=== PATIENT | male | born 1955 | race Caucasian/White ===

== ENCOUNTER 2021-10-14 14:18 | Oncology outpatient (recurring) (ONCR) | payer MEDICAID, SELFPAY ==
--- NOTE | 2021-10-07 13:49 | N.ONRAD NP_ITS ---
Radiation Oncology Consultation Patient Name: Ervin Vásquez Date of : 1955 Date of Service: 10/07/2021 Attending Physician: Yury Rea M.D. Ervin Vásquez was seen in consultation this afternoon at the request of Zaki Chaparro M.D. for evaluation regarding post-operative radiotherapy for the management of a recently diagnosed tonsillar cancer. The patient was evaluated by Bandar Jordan M.D. at [facility] ENT dysphagia and right otalgia in July. An examination described an ulcerated mass of the right tonsil. A fiberoptic laryngoscopy did not identify any abnormalities within base of tongue or larynx. 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 A CT scan of the neck (independently visualized in [facility]) ordered on July 25, 2021 demonstrated fullness of the right tonsillar pillar and bilateral, cervical lymphadenopathy. The largest lymph node measured 1.4 cm. PET scan on August 12, 2021 reported a large mass involving the right iram-tonsillar region with a maximum SUV of 17.4 and a 2 cm right cervical lymph node located posteriorly to the sternocleidomastoid muscle (SUV 19.9). He was referred to the [facility] Department of otolaryngology for surgical evaluation. An oral examination identified firmness of the right lateral oral tongue. Trismus was also present. A right partial glossectomy, right neck dissection, mandibulotomy with plate placement, a right anterior lateral thigh free flap pharyngoplasty, PEG placement, and tracheostomy was performed by Zaki Chaparro M.D. on September 03, 2021. The pathology report (requested from the outside hospital and personally reviewed in [facility]) diagnosed a 6 cm, moderately-differentiated, squamous cell carcinoma of the right tonsil, oral tongue, retromolar trigone, and floor of mouth. The depth of invasion measured 4.8 cm with focal iram--neural invasion present. Invasive tumor was present at the posterior surgical margin. A total of 44 lymph nodes were harvested with 1 lymph node harboring metastatic disease. The lymph node measured 4 cm and extranodal extension was present (level IIA). He was evaluated for post-operative radiotherapy. I discussed with Mr. Vásquez the AJCC staging for head and neck cancer and the patient's for pathological stage IVB (T4aN3b) specific to his diagnosis. I reviewed The National Comprehensive Cancer Network Guidelines for adjuvant chemoradiotherapy in patients with newly resected tumors and adverse features (i.e. positive margins, extranodal extension). I also summarized the classic studies - the EORTC 39095 and RTOG 9501 trials - that established this recommendation. The EORTC investigation demonstrated an overall survival advantage and improved locoregional control in the combined modality arm, while the RTOG study documented improved disease-free survival and locoregional control in a subgroup of patients with positive margins and extranodal extension. I would endorse a 6 1/2-week course of radiation therapy. Prior to beginning treatment, a radiotherapy planning CT scan with contrast will be acquired to delineate the clinical target volumes. I will also refer the patient to medical oncology consultation. I reviewed the potential toxicities of head and neck radiotherapy. The patient has verbalized understanding and would like to proceed as advocated. Patient's medical case was discussed with Zaki Chaparro M.D. Signed by: Dr. Yury Rea 12/04/2021 3:12:10 PM
[2021-10-07 14:25] LABS: Basophils % 0.3 %; Eosinophils # 0.4 10^3/uL (0.0-0.8); Eosinophils % 4.6 %; Hematocrit 35.2 % (42.0-52.0); Hemoglobin 11.3 g/dL (11.7-16.6); Lymphocytes # 2.7 10^3/uL (0.8-4.8); Lymphocytes % 30.7 %; Mean Corpuscular HGB Conc 32.1 g/dL (30.0-36.0); Mean Corpuscular Hemoglobin 31.3 pg (28.0-34.0); Mean Corpuscular Volume 97.5 fl (80-94); Monocytes # 0.9 10^3/uL (0.2-0.9); Monocytes % 10.1 %; Neutrophils # 4.76 10^3/uL (1.8-7.7); Neutrophils % 53.8 %; Nucleated Red Blood Cells % 0 %; Platelet Count 263 10^3/cmm (130-400); Red Blood Count 3.61 10^6/uL (4.1-5.3); Red Cell Distribution Width 12.8 % (12.1-15.1); White Blood Count 8.8 10^3/uL (4.0-10.0)
[2021-10-07 14:27] LABS: Alanine Aminotransferase 17 U/L (0-41); Albumin Level 4.1 g/dL (3.5-5.2); Alkaline Phosphatase 73 IU/L (40-130); Anion Gap 13.2 (5-19); Aspartate Amino Transferase 24 U/L (0-40); Blood Urea Nitrogen 22 mg/dL (8-23); Calcium 9.4 mg/dL (8.5-10.5); Carbon Dioxide 28 mmol/L (22-29); Chloride 100 mmol/L (98-107); Globulin 3.2 g/dL (1.3-4.6); Glomerular Filtration Rate 113.9 mL/min (90-130); Glucose 110 mg/dL (65-115); Osmolality Calculated 286 mOsm/kg (285-295); Potassium 5.2 mmol/L (3.5-5.1); Sodium 136 mmol/L (136-145); Total Bilirubin 0.3 mg/dL (0.15-1.2); Total Protein 7.3 g/dL (6.6-8.7)
== END 2021-10-17 23:59 | disposition home or self-care (01) ==
PROVIDERS: Radiology Radiation Oncology; Visit Provider Internal Medicine Hematology & Oncology
DX: Z53.9 Procedure and treatment not carried out, unspecified reason (principal)
CPT/HCPCS: 36415; 80053; 85025

== ENCOUNTER 2021-11-07 07:10 | Day surgery (SDC) | payer MEDICAID, SELFPAY ==
[2021-11-06 14:15] VITALS: BMI 20.9
[2021-11-07] VITALS (8 sets, daily range): BP systolic 125–152; BP diastolic 67–91; PULSE 57–68; RESP 14–18; TEMP 36.3–36.7; O2SAT 96–100
--- NOTE | 2021-11-07 | SCC_ITS ---
Procedure done: Placement of PowerPort in the left subclavian vein Fluoroscopic guidance and interpretation for placement of catheter 17.5 seconds of fluoroscopic guidance, for a cumulative dose of 2.19 mGy, was provided to Dr. Lala by the radiology department. C-arm images of the chest were saved for the patient's permanent record. [facility]
--- NOTE | 2021-11-07 06:59 | SC_ITS ---
WS: [id number] INTRAOPERATIVE TECHNIQUE: 2 Spot fluoroscopic images for intraoperative purposes. FLUOROSCOPY TIME: 15.2 seconds CLINICAL INFORMATION: intra-op COMPARISON: None. FINDINGS: LEFT Port-A-Cath with tip in the distal SVC. No visualized pneumothorax. SC/C-arm FL for CVA [id number] IMPRESSION: Images obtained for intraoperative purposes.
--- NOTE | 2021-11-07 08:03 | P.HP_ITS ---
Same Day Surgery H&P Indication for Procedure/HPI DATE OF PROCEDURE: November 07, 2021 CHIEF COMPLAINT/INDICATIONFOR SURGICAL PROCEDURE: Port placement PREOP DIAGNOSIS: tonsillar ca PLANNED PROCEDURE: Operation Date: 11/07/21 08:45 Proposed Procedures p Portacath Placement [id number],Z95.828,C09.9(Not Applicable) - Jose Angel Lala MD Medications/Allergies* Home Medications Medication Instructions Recorded Confirmed Type glycopyrrolate 1 mg tablet 1 mg PO BID tab 10/14/21 11/07/21 History ibuprofen 800 mg tablet 800 mg PO BID PRN tab 10/14/21 11/07/21 History lorazepam 0.5 mg tablet 0.5 mg PO .hs PRN tab 10/14/21 11/07/21 History omeprazole magnesium 20 mg 20 mg PO DAILY 10/14/21 11/07/21 History tablet,delayed release (Prilosec OTC) Allergies/Adverse Reactions Allergy/AdvReac Type Severity Reaction Status Date / Time No Known Allergies Allergy Verified 11/06/21 14:14 Pertinent History/Comorbid Conditions* Medical History (Updated 11/05/21 @ 10:59 by Jose Angel Lala MD) Cataract Tonsillar cancer Surgical History (Updated 11/05/21 @ 10:59 by Jose Angel Lala MD) History of coronary artery stent placement History of radical neck surgery History of umbilical hernia repair S/P percutaneous endoscopic gastrostomy (PEG) tube placement Family History (Updated 10/14/21 @ 15:47 by Cleopatra Montana LPN) Family history unknown Social History Smoking and tobacco status: former smoker Alcohol intake: current Alcohol intake frequency: 0-2 Drinks per Day Pertinent Exam Findings alert, oriented x 3 and regular rate & rhythm Recommendations Surgery/Procedure today Coding Level of Care Code 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
[2021-11-07] MEDS: sodium chloride 0.9% 1,000 ML 30 ML IV (08:05)
--- NOTE | 2021-11-07 08:15 | ANES.PREANE2 ---
Pre-Anesthetic Assessment Height/Weight: Height 1.83 m Weight 69.853 kg Temp Pulse Resp BP Pulse Ox 97.3 F L 57 L 18 148/73 100 11/07/21 07:46 11/07/21 07:46 11/07/21 07:46 11/07/21 07:46 11/07/21 07:46 Preop Diagnosis: tonsillar ca Operation Date: 11/07/21 08:45 Proposed Procedures p Portacath Placement 48567,Z95.828,C09.9(Not Applicable) - Jose Angel Lala MD Familial anesthetic complications: none Was Beta Tequila taken within 24 hours: N/A Was Clonidine taken within 24 hours: N/A Last intake: Intake Last Liquid Date 11/06/21 Last Liquid Time 05:00 Last Solid Date 11/06/21 Last Solid Time 18:00 Social Alcohol and Tobacco Exam alert, oriented x 3 and regular rate & rhythm rhonchi Airway Submandibular: within normal limits Cervical ROM: within normal limits Mallampati: Class II Dentition: false Pulmonary Chronic Obstructive Pulmonary Disease CV/HEM Coronary Artery Disease (stent) GI Gastroesophageal Reflux Disease Neuropsych Anxiety Anesthetic Plan ASA status: 3 Anesthesia: MAC Medications/Allergies Home Medications Medication Instructions Recorded Confirmed Last Taken Type glycopyrrolate 1 mg tablet 1 mg PO BID tab 10/14/21 11/07/21 11/06/21 History ibuprofen 800 mg tablet 800 mg PO BID PRN tab 10/14/21 11/07/21 10/24/21 History lorazepam 0.5 mg tablet 0.5 mg PO .hs PRN tab 10/14/21 11/07/21 11/06/21 20:00 History omeprazole magnesium 20 mg 20 mg PO DAILY 10/14/21 11/07/21 11/06/21 20:00 History tablet,delayed release (Prilosec OTC) hydrocodone 5 mg-acetaminophen 325 1 tab PO Q6H PRN #20 tab 11/07/21 Unknown Rx mg tablet Allergies Allergy/AdvReac Type Severity Reaction Status Date / Time No Known Allergies Allergy Verified 11/06/21 14:14 Current Medications Generic Name Dose Route Start Last Admin Trade Name Freq PRN Reason Stop Dose Admin Sodium Chloride 1,000 mls @ 30 mls/hr 11/07/21 07:45 11/07/21 08:05 Sodium Chloride 0.9% IV 11/08/21 07:44 30 mls/hr .Q24H ELIZABETH Administration PFSH Anesthesia Medical History (Updated 11/07/21 @ 08:05 by Jose Angel Lala MD) Cataract Tonsillar cancer Surgical History (Updated 11/07/21 @ 08:05 by Jose Angel Lala MD) History of coronary artery stent placement History of radical neck surgery History of umbilical hernia repair Port-A-Cath in place (11/07/21) S/P percutaneous endoscopic gastrostomy (PEG) tube placement Family History Other Family history unknown Social History Smoking and tobacco status: former smoker Alcohol intake: current Alcohol intake frequency: 0-2 Drinks per Day Data Anesthesia Cardiac Studies: No Data to Display
[2021-11-07] MEDS: ceFAZolin 2,000 MG in sodium chloride 0.9% (plus) 50 ML 100 MG IV (08:51)
[2021-11-07] MEDS: lidocaine 2% INJ 20 mL INJECTION (09:17)
[2021-11-07] MEDS: heparin, porcine 1,000 unit/mL INJ 10 mL 10000 UNIT IRRIGATION (09:18)
--- NOTE | 2021-11-07 09:32 | PM.OP ---
Operative Report Date of procedure: November 07, 2021 Pre-op diagnosis: Tonsillar cancer requiring central venous access for chemotherapy Post-op diagnosis: same Procedure done: Placement of PowerPort in the left subclavian vein Fluoroscopic guidance and interpretation for placement of catheter Pathology: none sent Surgeon: Jose Angel Lala Anesthesia: General Condition: stable Disposition: PACU Procedure: The patient was taken to the Operating Room and the chest and neck bilaterally were prepped and draped in a sterile manner after the antibiotic had been administered and shoulder rolls had been placed. A total of 10 mL of 1% lidocaine with 0.5% Marcaine was infiltrated under the clavicle on the left side at the site of the planned entry into the subclavian vein. An introducer needle was then used to access the subclavian vein under the clavicle and after withdrawing blood syringe was removed and a guidewire passed under fluoroscopy into the superior vena cava. The site of the planned port was then marked on the chest and a 15 blade was used to make a 3 cm skin incision this was extended into the subcutaneous tissue using electrocautery and a subcutaneous pocket over the pectoralis fascia was created 2-0 Vicryl suture was used to suture the port to the pectoral fascia in the pocket on 3 sides. The catheter, after having been flushed with hep saline, was attached to the tunneler and a tunnel created between the port site and the subclavian vein entry site. Under fluoroscopy the dilator sheath was passed over the guidewire into the proximal superior vena cava. The inner dilator was removed and the sheath left behind and~ the catheter was introduced through the peel-away sheath with the tip in the superior vena cava. The peel-away sheath was removed. The proximal end of the catheter was cut to the right size and was attached to the port. Using a Pollack needle the port was accessed, it withdrew blood easily and flushed easily. A final 5cc of heparin was used to flush the PowerPort. The subcutaneous tissue was approximated using interrupted 3-0 Vicryl sutures and the skin at the introducer site and the port site was closed using subcuticular running 4-0 Monocryl sutures. Surgical glue was applied and the patient was stable throughout the procedure. Fluoroscopic guidance and interpretation was performed for introduction of the guidewire in the left subclavian vein, passage of dilator and placement of catheter tip in the distal superior vena cava.
--- NOTE | 2021-11-07 16:20 | ANE.PACU2 ---
Inpatient post-anesthesia follow up: Airway intact: Yes Vital signs: Temperature 97.8 F Pulse Rate 59 Respiratory Rate 16 Blood Pressure 130/91 Pulse Oximetry 98 Oxygen Delivery Me thod Room Air Oxygen Flow Rate Fraction of Inspir ed Oxygen Hydration adequate: Yes Nausea and vomiting: No Pain level: 3 Mental status: Baseline
== END 2021-11-07 10:35 | disposition home or self-care (01) ==
PROVIDERS: Visit Provider Surgery
PROC: (CPT 36561; principal; 2021-11-07 08:45)
DX: C09.9 Malignant neoplasm of tonsil, unspecified (principal); J44.9 Chronic obstructive pulmonary disease, unspecified; I25.10 Atherosclerotic heart disease of native coronary artery without angina pectoris; Z95.5 Presence of coronary angioplasty implant and graft; K21.9 Gastro-esophageal reflux disease without esophagitis; F41.9 Anxiety disorder, unspecified; Z87.891 Personal history of nicotine dependence
CPT/HCPCS: 36561; 77001; C1788; J1644; J2250; J3010; J3490; J7030

== ENCOUNTER 2021-11-11 13:02 | Oncology outpatient (recurring) (ONCR) | payer MEDICAID, SELFPAY ==
--- NOTE | 2021-11-11 | CT_ITS ---
Radiation Therapy Planning CT images; total exam DLP: 576.59 mGy-cm MTDD
--- NOTE | 2021-11-11 14:04 | ONCRAD EPV_ITS ---
Radiation Oncology Established Patient Visit Patient: Thalia Mueller [id number] : 1955> Age: 66> Sex: Male> Dictated by: Dr. Chaz Andersen Date of Service: 11/11/2021 Referring Physician(s) : Dr. Bandar Jordan Diagnosis: C09.9 - Malignant neoplasm of tonsil, unspecified, Diagnosed 07/26/2021 (Active) Stage IVB, T4a, pN3b, M0, p16- Radiotherapy to Date: None Current History: Current Medications: Glycopyrrolate, lORazepam, priLOSEC OTC. Allergies: No Known Allergies Current Complaints / Review of Systems: . Mr. Vásquez was seen prior to simulation. He is continuing to have some right ear pain which is thought to be referred from his surgical bed area. No other areas of pain. He says he has mild difficulty opening his mouth. He is eating a semisolid diet. He is also using his PEG tube. He has had no trouble with the tube feedings. His incisions of the neck and of the oral cavity have healed well. His performance status is stable. He is ready to proceed with treatment. He states he has a small amount of taste along the left side of his tongue. He has moderate dryness of his mouth, particularly at night. Vital Signs: Physical Exam: General: Alert and oriented x 3. No acute distress. HEENT: Normocephalic, atraumatic. The right tympanic membrane is intact and completely clear. Mild trismus. Most of the tongue is replaced by surgical graft. There is a small amount of lateral tongue remaining on the left. Palpation of both the graft and the remaining normal tongue reveals no masses. No masses in the floor of mouth area. The graft covers the right lower gingiva. The remainder of the gingiva was palpated and no abnormality detected. The patient is edentulous. There is graft covering the area of the right soft palate. This area extends to just short of the uvula. No gross tumor seen in any of this area. No abnormal induration palpated. The soft palate graft extends from near the uvula laterally to the anterior tonsillar pillar. NECK: Supple without supraclavicular or jugular lymphadenopathy. Stable postoperative changes. The surgical scar is intact without any evidence of inflammation or infection. There is submental and submandibular edema on the right. No masses palpated in this area. LUNGS: Clear to auscultation bilaterally without rales, rhonchi or wheeze. HEART: Regular rate and rhythm, normal S1 and S2 without murmur, gallop or rub. MUSCULOSKELETAL: No tenderness or percussion pain over the axial skeleton, scapulae or pelvis. ABDOMEN: Soft, nontender, nondistended without masses or organomegaly. Bowell sounds are present. PEG tube is well-positioned and there is no inflammation of the puncture site. NEUROLOGIC: Cranial nerves II ???XII are grossly intact. Normal sensation, strength 5/5 in all extremities, normal gait, no ataxia. Performance Status: ECOG 1 Lab: None pending. Pathology: Primary, c09.9 - malignant neoplasm of tonsil, unspecified, Diagnosed 07/26/2021 (active) stage ivb, t4a, pn3b, m0, p16-. Imaging: See HPI Impression: Ready for simulation. I discussed the potential side effects and complications of treatment. Mr. Vásquez wishes to proceed. Simulation performed. Signed by: 11/11/2021 2:02:27 PM <<Signature on File>> Time spent with patient: CPT Code: CPT Code:
== END 2021-11-17 23:59 | disposition home or self-care (01) ==
PROVIDERS: Absent Provider Internal Medicine Hematology & Oncology; Visit Provider Specialist
DX: Z51.0 Encounter for antineoplastic radiation therapy (principal); C09.9 Malignant neoplasm of tonsil, unspecified
CPT/HCPCS: 77334; 77470

== ENCOUNTER 2021-12-16 08:00 | Oncology outpatient (recurring) (ONCR) | payer MEDICAID, SELFPAY ==
[2021-11-18 08:38] LABS: Basophils % 0.5 %; Eosinophils # 0.3 10^3/uL (0.0-0.8); Eosinophils % 3.4 %; Hematocrit 37.6 % (42.0-52.0); Hemoglobin 12.1 g/dL (11.7-16.6); Lymphocytes # 2.6 10^3/uL (0.8-4.8); Lymphocytes % 35.3 %; Mean Corpuscular HGB Conc 32.2 g/dL (30.0-36.0); Mean Corpuscular Hemoglobin 30.6 pg (28.0-34.0); Mean Corpuscular Volume 95.2 fl (80-94); Mean Platelet Volume 11.8 fL (7.4-10.4); Monocytes % 13.1 %; Neutrophils % 47.3 %; Nucleated Red Blood Cells % 0 %; Platelet Count 290 10^3/cmm (130-400); Red Blood Count 3.95 10^6/uL (4.1-5.3); Red Cell Distribution Width 13.3 % (12.1-15.1); White Blood Count 7.4 10^3/uL (4.0-10.0)
[2021-11-18] MEDS: sodium chloride 0.9% 250 ML 75 ML IV ×2 (08:46→10:43)
[2021-11-18 09:04] LABS: Alanine Aminotransferase 14 U/L (0-41); Albumin Level 4.2 g/dL (3.5-5.2); Alkaline Phosphatase 77 IU/L (40-130); Anion Gap 11.7 (5-19); Aspartate Amino Transferase 21 U/L (0-40); Blood Urea Nitrogen 13 mg/dL (8-23); Calcium 9.6 mg/dL (8.5-10.5); Carbon Dioxide 30 mmol/L (22-29); Chloride 99 mmol/L (98-107); Glomerular Filtration Rate 216.6 mL/min (90-130); Glucose 120 mg/dL (65-115); Osmolality Calculated 283 mOsm/kg (285-295); Potassium 4.7 mmol/L (3.5-5.1); Sodium 136 mmol/L (136-145); Total Bilirubin 0.4 mg/dL (0.15-1.2); Total Protein 7.2 g/dL (6.6-8.7)
[2021-11-18] MEDS: acetaminophen 650 mg/20.3 mL UDC PEG-TUBE (10:00)
[2021-11-18] MEDS: OLANZapine 5 mg ODT PO (10:02)
[2021-11-18] MEDS: palonosetron 0.25 mg/5 mL SDV IVP (10:12)
[2021-11-18] MEDS: famotidine 20 mg/2 mL INJ IVP (10:13)
[2021-11-18] MEDS: diphenhydrAMINE 50 mg/mL SDV 1mL 25 MG IVP (10:14)
[2021-11-18] MEDS: fosaprepitant 150 MG in sodium chloride 0.9% 150 ML 300 MG IV (10:17)
[2021-11-18] MEDS: FUROsemide 10 mg/mL SDV 2mL 20 MG IVP (13:00)
[2021-11-18] MEDS: potassium chloride 20 MEQ in sodium chloride 0.9% 500 ML 500 MEQ IV (13:00)
[2021-11-18 14:07] VITALS: BP 123/77; PULSE 61; RESP 16; TEMP 36.4; O2SAT 99
--- NOTE | 2021-11-19 15:16 | ONCRAD TMN_ITS ---
Radiation Oncology Treatment Management Note Patient Name: Ervin Vásquez Date of : 1955 Date of Service: 11/19/2021 Attending Physician: Yury Rea M.D. Ervin Vásquez is a 76 year old white male diagnosed with a recently diagnosed pathological stage IVB (T4aN3b) tongue cancer. The patient was evaluated by Bandar Jordan M.D. at [facility] ENT dysphagia and right otalgia in July. An examination described an ulcerated mass of the right tonsil. A fiberoptic laryngoscopy did not identify any abnormalities within base of tongue or larynx. 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 A CT scan of the neck ordered on July 25, 2021 demonstrated fullness of the right tonsillar pillar and bilateral, cervical lymphadenopathy. The largest lymph node measured 1.4 cm. PET scan on August 12, 2021 reported a large mass involving the right iram-tonsillar region with a maximum SUV of 17.4 and a 2 cm right cervical lymph node located posteriorly to the sternocleidomastoid muscle (SUV 19.9). He was referred to the [facility] Department of otolaryngology for surgical evaluation. An oral examination identified numbness of the right lateral oral tongue. Trismus was also present. A right partial glossectomy, right neck dissection, mandibulotomy with plate placement, a right anterior lateral thigh free flap pharyngoplasty, PEG placement, and tracheostomy was performed by Zaki Chaparro M.D. on September 03, 2021. The pathology report diagnosed a 6 cm, moderately-differentiated, squamous cell carcinoma of the right tonsil, oral tongue, retromolar trigone, and floor of mouth. The depth of invasion measured 4.8 cm with focal iram--neural invasion present. Invasive tumor was present at the posterior surgical margin. A total of 44 lymph nodes were harvested with 1 lymph node harboring metastatic disease. The lymph node measured 4 cm and extranodal extension was present (level IIA). The patient has received 4 Gy of a prescribed 66 Mcallister with an intensity modulated radiotherapy plan utilizing a step and shoot treatment technique. He has been prescribed Cisplatin (100 mg/m2) every three weeks during radiotherapy. Upon review of systems, he denied any complaints related to radiotherapy. On physical examination, the patient weighed 159 lbs. His temperature was 98.4 ???F and the blood pressure was 143/70 mmHg. His pulse was 69 bpm and the respiratory rate was 18. There was no erythema within the treatment joya. Continue post-operative head and neck radiotherapy as prescribed. Signed by: Dr. Yury Rea 11/19/2021 3:16:01 PM
[2021-11-25 08:40] LABS: Basophils % 0.5 %; Eosinophils # 0.2 10^3/uL (0.0-0.8); Eosinophils % 2.5 %; Hematocrit 40.3 % (42.0-52.0); Lymphocytes # 2.3 10^3/uL (0.8-4.8); Lymphocytes % 26.3 %; Mean Corpuscular HGB Conc 32.3 g/dL (30.0-36.0); Mean Corpuscular Hemoglobin 30.4 pg (28.0-34.0); Mean Corpuscular Volume 94.2 fl (80-94); Monocytes # 1.2 10^3/uL (0.2-0.9); Monocytes % 13.4 %; Neutrophils # 4.88 10^3/uL (1.8-7.7); Neutrophils % 56.9 %; Nucleated Red Blood Cells % 0 %; Platelet Count 257 10^3/cmm (130-400); Red Blood Count 4.28 10^6/uL (4.1-5.3); Red Cell Distribution Width 13.1 % (12.1-15.1); White Blood Count 8.6 10^3/uL (4.0-10.0)
[2021-11-25 09:03] LABS: Alanine Aminotransferase 34 U/L (0-41); Albumin Level 4.1 g/dL (3.5-5.2); Alkaline Phosphatase 88 IU/L (40-130); Anion Gap 16.4 (5-19); Aspartate Amino Transferase 27 U/L (0-40); Blood Urea Nitrogen 16 mg/dL (8-23); Calcium 9.7 mg/dL (8.5-10.5); Carbon Dioxide 28 mmol/L (22-29); Chloride 98 mmol/L (98-107); Globulin 3.6 g/dL (1.3-4.6); Glomerular Filtration Rate 167.4 mL/min (90-130); Glucose 97 mg/dL (65-115); Osmolality Calculated 287 mOsm/kg (285-295); Potassium 4.4 mmol/L (3.5-5.1); Sodium 138 mmol/L (136-145); Total Bilirubin 0.4 mg/dL (0.15-1.2); Total Protein 7.7 g/dL (6.6-8.7)
[2021-11-25] MEDS: sodium chloride 0.9% 500 ML 999 ML IV (10:21)
[2021-11-25] MEDS: dexamethasone 4 mg/mL INJ IV (10:22)
[2021-11-25] MEDS: ondansetron 2 mg/ML SDV 2 mL 8 MG IVP (10:23)
--- NOTE | 2021-11-26 15:20 | ONCRAD TMN_ITS ---
Radiation Oncology Treatment Management Note Patient Name: Ervin Vásquez Date of : 1955 Date of Service: 11/26/2021 Attending Physician: Yury Rea M.D. 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 The patient was evaluated by Bandar Jordan M.D. at [facility] ENT dysphagia and right otalgia in July. An examination described an ulcerated mass of the right tonsil. A fiberoptic laryngoscopy did not identify any abnormalities within base of tongue or larynx. 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 A CT scan of the neck ordered on July 25, 2021 demonstrated fullness of the right tonsillar pillar and bilateral, cervical lymphadenopathy. The largest lymph node measured 1.4 cm. PET scan on August 12, 2021 reported a large mass involving the right iram-tonsillar region with a maximum SUV of 17.4 and a 2 cm right cervical lymph node located posteriorly to the sternocleidomastoid muscle (SUV 19.9). He was referred to the [facility] Department of otolaryngology for surgical evaluation. An oral examination identified numbness of the right lateral oral tongue. Trismus was also present. A right partial glossectomy, right neck dissection, mandibulotomy with plate placement, a right anterior lateral thigh free flap pharyngoplasty, PEG placement, and tracheostomy was performed by Zaki Chaparro M.D. on September 03, 2021. The pathology report diagnosed a 6 cm, moderately-differentiated, squamous cell carcinoma of the right tonsil, oral tongue, retromolar trigone, and floor of mouth. The depth of invasion measured 4.8 cm with focal iram--neural invasion present. Invasive tumor was present at the posterior surgical margin. A total of 44 lymph nodes were harvested with 1 lymph node harboring metastatic disease. The lymph node measured 4 cm and extranodal extension was present (level IIA). The patient has received 12 Gy of a prescribed 66 Mcallister with an intensity modulated radiotherapy plan utilizing a step and shoot treatment technique. He has been prescribed Cisplatin (100 mg/m2) every three weeks during radiotherapy. Upon review of systems, he denied any complaints related to radiotherapy. On physical examination, the patient weighed 152 lbs. His temperature was 98 ???F and the blood pressure was 134/65 mmHg. His pulse was 71 bpm and the respiratory rate was 18. There was no erythema within the treatment joya. Continue post-operative head and neck radiotherapy as planned. Signed by: Dr. Yury Rea 11/26/2021 3:18:41 PM
[2021-12-02 08:19] LABS: Basophils % 0.7 %; Eosinophils # 0.2 10^3/uL (0.0-0.8); Eosinophils % 2.9 %; Hematocrit 37.1 % (42.0-52.0); Lymphocytes % 18.8 %; Mean Corpuscular HGB Conc 32.3 g/dL (30.0-36.0); Mean Corpuscular Hemoglobin 30.6 pg (28.0-34.0); Mean Corpuscular Volume 94.6 fl (80-94); Mean Platelet Volume 11.7 fL (7.4-10.4); Monocytes # 0.6 10^3/uL (0.2-0.9); Monocytes % 11.6 %; Neutrophils # 3.58 10^3/uL (1.8-7.7); Neutrophils % 65.8 %; Nucleated Red Blood Cells % 0 %; Platelet Count 218 10^3/cmm (130-400); Red Blood Count 3.92 10^6/uL (4.1-5.3); Red Cell Distribution Width 13.2 % (12.1-15.1); White Blood Count 5.4 10^3/uL (4.0-10.0)
[2021-12-02 08:40] LABS: Alanine Aminotransferase 12 U/L (0-41); Albumin Level 3.8 g/dL (3.5-5.2); Alkaline Phosphatase 76 IU/L (40-130); Anion Gap 13.6 (5-19); Aspartate Amino Transferase 20 U/L (0-40); Blood Urea Nitrogen 16 mg/dL (8-23); Calcium 8.9 mg/dL (8.5-10.5); Carbon Dioxide 28 mmol/L (22-29); Chloride 100 mmol/L (98-107); Globulin 3.4 g/dL (1.3-4.6); Glomerular Filtration Rate 167.4 mL/min (90-130); Glucose 107 mg/dL (65-115); Osmolality Calculated 286 mOsm/kg (285-295); Potassium 4.6 mmol/L (3.5-5.1); Sodium 137 mmol/L (136-145); Total Bilirubin 0.3 mg/dL (0.15-1.2); Total Protein 7.2 g/dL (6.6-8.7)
[2021-12-02] MEDS: sodium chloride 0.9% 1,000 ML 999 ML IV (09:22)
--- NOTE | 2021-12-03 15:37 | ONCRAD TMN_ITS ---
Radiation Oncology Treatment Management Note Patient Name: Ervin Vásquez Date of : 1955 Date of Service: 12/03/2021 Attending Physician: Yury Rea M.D. 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 The patient was evaluated by Bandar Jordan M.D. at [facility] ENT dysphagia and right otalgia in July. An examination described an ulcerated mass of the right tonsil. A fiberoptic laryngoscopy did not identify any abnormalities within base of tongue or larynx. 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 A CT scan of the neck ordered on July 25, 2021 demonstrated fullness of the right tonsillar pillar and bilateral, cervical lymphadenopathy. The largest lymph node measured 1.4 cm. PET scan on August 12, 2021 reported a large mass involving the right iram-tonsillar region with a maximum SUV of 17.4 and a 2 cm right cervical lymph node located posteriorly to the sternocleidomastoid muscle (SUV 19.9). [facility] Department of [facility]olaryngology for surgical evaluation. An oral examination identified firmness of the right lateral oral tongue. Trismus was also present. A right partial glossectomy, right neck dissection, mandibulotomy with plate placement, a right anterior lateral thigh free flap pharyngoplasty, PEG placement, and tracheostomy was performed by Zaki Chaparro M.D. on September 03, 2021. The pathology report diagnosed a 6 cm, moderately-differentiated, squamous cell carcinoma of the right tonsil, oral tongue, retromolar trigone, and floor of mouth. The depth of invasion measured 4.8 cm with focal iram-neural invasion present. Invasive tumor was present at the posterior surgical margin. A total of 44 lymph nodes were harvested with 1 lymph node harboring metastatic disease. The lymph node measured 4 cm and extranodal extension was present (level IIA). The patient has received 22 Gy of a prescribed 66 Mcallister with an intensity modulated radiotherapy plan utilizing a step and shoot treatment technique. He has been prescribed Cisplatin (100 mg/m2) every three weeks during radiotherapy. Upon review of systems, he denied any complaints related to radiotherapy. On physical examination, the patient weighed 156 lbs. His temperature was 97.5 ???F and the blood pressure was 120/64 mmHg. His pulse was 64 bpm and the respiratory rate was 18. There was no erythema within the treatment joya. Continue post-operative head and neck radiotherapy as prescribed. Signed by: Dr. Yury Rea 12/04/2021 3:12:32 PM
[2021-12-09 08:21] LABS: Basophils % 0.8 %; Eosinophils # 0.2 10^3/uL (0.0-0.8); Eosinophils % 6.3 %; Hematocrit 38.5 % (42.0-52.0); Hemoglobin 12.4 g/dL (11.7-16.6); Lymphocytes # 0.9 10^3/uL (0.8-4.8); Lymphocytes % 23.1 %; Mean Corpuscular HGB Conc 32.2 g/dL (30.0-36.0); Mean Corpuscular Volume 93.2 fl (80-94); Mean Platelet Volume 11.4 fL (7.4-10.4); Monocytes # 0.6 10^3/uL (0.2-0.9); Monocytes % 15.5 %; Neutrophils % 54.3 %; Nucleated Red Blood Cells % 0 %; Platelet Count 284 10^3/cmm (130-400); Red Blood Count 4.13 10^6/uL (4.1-5.3); Red Cell Distribution Width 13.1 % (12.1-15.1); White Blood Count 3.7 10^3/uL (4.0-10.0)
[2021-12-09 08:52] LABS: Alanine Aminotransferase 13 U/L (0-41); Albumin Level 3.9 g/dL (3.5-5.2); Alkaline Phosphatase 84 U/L (40-130); Anion Gap 13.8 (5-19); Aspartate Amino Transferase 19 U/L (0-40); Blood Urea Nitrogen 17 mg/dL (8-23); Calcium 9.2 mg/dL (8.5-10.5); Carbon Dioxide 29 mmol/L (22-29); Chloride 99 mmol/L (98-107); Globulin 3.7 g/dL (1.3-4.6); Glomerular Filtration Rate 167.4 mL/min (90-130); Glucose 115 mg/dL (65-115); Osmolality Calculated 286 mOsm/kg (285-295); Potassium 4.8 mmol/L (3.5-5.1); Sodium 137 mmol/L (136-145); Total Bilirubin 0.2 mg/dL (0.15-1.2); Total Protein 7.6 g/dL (6.6-8.7)
[2021-12-09] MEDS: famotidine 20 mg/2 mL INJ IVP (11:22)
[2021-12-09] MEDS: sodium chloride 0.9% 250 ML IV (11:22)
[2021-12-09] MEDS: diphenhydrAMINE 50 mg/mL SDV 1mL 25 MG IVP (11:22)
[2021-12-09] MEDS: OLANZapine 5 mg TABLET PO (11:23)
[2021-12-09] MEDS: fosaprepitant 150 MG in sodium chloride 0.9% 150 ML 300 MG IV (11:27)
[2021-12-09] MEDS: palonosetron 0.25 mg/5 mL SDV IVP (12:07)
[2021-12-09] MEDS: CISPLATIN IV (12:34)
[2021-12-09] MEDS: SODIUM CHLORIDE 0.9% IV (12:34)
[2021-12-09] MEDS: FUROsemide 10 mg/mL SDV 2mL 20 MG IVP (13:43)
[2021-12-09] MEDS: potassium chloride 20 MEQ in sodium chloride 0.9% 500 ML 500 MEQ IV (13:47)
[2021-12-09 15:07] VITALS: BP 121/65; PULSE 57; TEMP 37.2; O2SAT 97
--- NOTE | 2021-12-10 15:20 | ONCRAD TMN_ITS ---
Radiation Oncology Treatment Management Note Patient Name: Ervin Vásquez Date of : 1955 Date of Service: 12/10/2021 Attending Physician: Yury Rea M.D. 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 The patient was evaluated by Bandar Jordan M.D. at [facility] ENT dysphagia and right otalgia in July. An examination described an ulcerated mass of the right tonsil. A fiberoptic laryngoscopy did not identify any abnormalities within base of tongue or larynx. 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 A CT scan of the neck ordered on July 25, 2021 demonstrated fullness of the right tonsillar pillar and bilateral, cervical lymphadenopathy. The largest lymph node measured 1.4 cm. PET scan on August 12, 2021 reported a large mass involving the right iram-tonsillar region with a maximum SUV of 17.4 and a 2 cm right cervical lymph node located posteriorly to the sternocleidomastoid muscle (SUV 19.9). He was referred to the [facility]s Department of otolaryngology for surgical evaluation. An oral examination identified firmness of the right lateral oral tongue. Trismus was also present. A right partial glossectomy, right neck dissection, mandibulotomy with plate placement, a right anterior lateral thigh free flap pharyngoplasty, PEG placement, and tracheostomy was performed by Zaki Chaparro M.D. on September 03, 2021. The pathology report diagnosed a 6 cm, moderately-differentiated, squamous cell carcinoma of the right tonsil, oral tongue, retromolar trigone, and floor of mouth. The depth of invasion measured 4.8 cm with focal iram-neural invasion present. Invasive tumor was present at the posterior surgical margin. A total of 44 lymph nodes were harvested with 1 lymph node harboring metastatic disease. The lymph node measured 4 cm and extranodal extension was present (level IIA). The patient has received 32 Gy of a prescribed 66 Mcallister with an intensity modulated radiotherapy plan utilizing a step and shoot treatment technique. He has been prescribed cisplatin (100 mg/m2) every three weeks during radiotherapy. After the first cycle of chemotherapy, the schedule was changed to weekly cisplatin attributable to adverse effects. Upon review of systems, he described a lip sore. On physical examination, the patient weighed 158 lbs. His temperature was 99.1 ???F and the blood pressure was 146/80 mmHg. His pulse was 73 bpm and the respiratory rate was 18. There was no erythema within the treatment joya. A grade I mucositis was present. Continue post-operative head and neck radiotherapy as planned. Signed by: Dr. Yury Rea 12/10/2021 3:19:06 PM
[2021-12-16 08:30] LABS: Basophils # 0.1 10^3/uL (0.0-0.1); Basophils % 0.9 %; Eosinophils # 0.3 10^3/uL (0.0-0.8); Eosinophils % 5.1 %; Hematocrit 37.7 % (42.0-52.0); Hemoglobin 12.3 g/dL (11.7-16.6); Lymphocytes # 0.8 10^3/uL (0.8-4.8); Lymphocytes % 15.1 %; Mean Corpuscular HGB Conc 32.6 g/dL (30.0-36.0); Mean Corpuscular Hemoglobin 30.7 pg (28.0-34.0); Mean Platelet Volume 11.9 fL (7.4-10.4); Monocytes # 0.7 10^3/uL (0.2-0.9); Monocytes % 13.3 %; Neutrophils # 3.57 10^3/uL (1.8-7.7); Neutrophils % 65.1 %; Nucleated Red Blood Cells % 0 %; Platelet Count 199 10^3/cmm (130-400); Red Blood Count 4.01 10^6/uL (4.1-5.3); Red Cell Distribution Width 13.3 % (12.1-15.1); White Blood Count 5.5 10^3/uL (4.0-10.0)
[2021-12-16 08:48] LABS: Alanine Aminotransferase 12 U/L (0-41); Albumin Level 4.1 g/dL (3.5-5.2); Alkaline Phosphatase 83 U/L (40-130); Anion Gap 14.7 (5-19); Aspartate Amino Transferase 19 U/L (0-40); Blood Urea Nitrogen 18 mg/dL (8-23); Calcium 9.1 mg/dL (8.5-10.5); Carbon Dioxide 25 mmol/L (22-29); Chloride 100 mmol/L (98-107); Globulin 3.1 g/dL (1.3-4.6); Glomerular Filtration Rate 167.4 mL/min (90-130); Glucose 125 mg/dL (65-115); Osmolality Calculated 283 mOsm/kg (285-295); Potassium 4.7 mmol/L (3.5-5.1); Sodium 135 mmol/L (136-145); Total Bilirubin 0.2 mg/dL (0.15-1.2); Total Protein 7.2 g/dL (6.6-8.7)
[2021-12-16] MEDS: OLANZapine 5 mg ODT PO (09:57)
[2021-12-16] MEDS: sodium chloride 0.9% 250 ML 75 ML IV (10:11)
[2021-12-16] MEDS: palonosetron 0.25 mg/5 mL SDV IVP (10:12)
[2021-12-16] MEDS: famotidine 20 mg/2 mL INJ IVP (10:13)
[2021-12-16] MEDS: diphenhydrAMINE 50 mg/mL SDV 1mL 25 MG IVP (10:15)
[2021-12-16] MEDS: fosaprepitant 150 MG in sodium chloride 0.9% 150 ML 300 MG IV (10:17)
[2021-12-16] MEDS: CISPLATIN IV (11:06)
[2021-12-16] MEDS: SODIUM CHLORIDE 0.9% IV (11:06)
[2021-12-16] MEDS: FUROsemide 10 mg/mL SDV 2mL 20 MG IVP (12:16)
[2021-12-16] MEDS: potassium chloride 20 MEQ in sodium chloride 0.9% 500 ML 500 MEQ IV (12:18)
[2021-12-16 13:06] VITALS: BP 121/69; PULSE 68; RESP 16; TEMP 37.1
== END 2021-12-17 09:18 | disposition home or self-care (01) ==
PROVIDERS: Nurse Practitioner Family; Absent Provider Internal Medicine Hematology & Oncology; Visit Provider Specialist
DX: Z51.0 Encounter for antineoplastic radiation therapy (principal); Z51.11 Encounter for antineoplastic chemotherapy; C09.1 Malignant neoplasm of tonsillar pillar (anterior) (posterior); C77.0 Secondary and unspecified malignant neoplasm of lymph nodes of head, face and neck; Z79.899 Other long term (current) drug therapy; Z87.891 Personal history of nicotine dependence
CPT/HCPCS: 36591; 77300; 77301; 77336; 77338; 77386; 80053; 85025; 96365; 96366; 96367; 96375; 96413; 96415; 99214; 99215; J1100; J1200; J1453; J1940; J2405; J2469; J3475; J3480; J3490; J7030; J7040; J7050; J9060

== ENCOUNTER 2021-12-18 14:40 | Oncology outpatient (recurring) (ONCR) | payer MEDICAID, SELFPAY ==
--- NOTE | 2021-12-17 15:40 | ONCRAD TMN_ITS ---
Radiation Oncology Weekly Treatment Management Patient: Thalia Mueller MR#: [id number] : 1955 Attending Physician: Dr. Chaz Andersen Date of Service: 12/17/2021 Referring Physician(s) : Dr. Bandar Jordan Diagnosis: C09.9 - Malignant neoplasm of tonsil, unspecified, Diagnosed 07/26/2021 (Active) Stage IVB, T4a, pN3b, M0, p16- Radiotherapy to date: Course: Head Neck, Treatment Site: Head Neck SIB, Ref. ID: [id number], Energy: 6X, Dose/Fx (cGy): 200, #Fx: , Dose Correction (cGy): 0, Total Dose (cGy): 4,200, Start Date: 11/18/2021, Elapsed Days: 29 Reason for visit: The patient is being seen today as part of their regularly scheduled weekly on treatment visits to assess for acute toxicities from radiotherapy. Review of Systems: He has received 21 of 33 fractions. He has been changed from high-dose cisplatin to weekly cisplatin because of toxicity issues. Yesterday he received IV fluids and medications. He feels quite well today. He denies pain in the oral cavity. He states he has a little irritation just inside his lips. He has no skin complaints, though he states he does notice some dryness. He is applying aloe vera gel and also a commercial moisturizer. He has no taste and his mouth is very dry. He notices thick sputum. Vital Signs: Performed on 12/17/2021 2:57 PM BMI - 21.429 kg/m2, Height - 72 in, Weight - 158 lbs, Temperature - 98.0 f, Pulse - 71 /min, Respiration - 16 /min, O2 Sat - 100 %, Pain - 0, Fatigue - 0 and BP - 136/ 72 mm(hg). Physical Exam: He appears alert, oriented, and in no distress. The neck is free of lymphadenopathy. He has a skin tag that will probably fall off during treatment. The skin of the neck has very minimal reaction. Oral cavity exam reveals his graft to be intact. No lesions, yeast, or viral ulcerations seen. He has moderate mucositis. Imaging: Radiation therapy imaging related to accurate target localization (i.e. KV, MV and CBCT) was reviewed. Appropriate changes, if any, were made to ensure treatment accuracy. Plan: Continue treatment per plan. No questions about the treatment process. Signed by: Dr. Chaz Andersen 12/17/2021 3:39:59 PM
== END 2021-12-18 23:59 | disposition home or self-care (01) ==
PROVIDERS: Absent Provider Internal Medicine Hematology & Oncology; Visit Provider Specialist
DX: Z51.0 Encounter for antineoplastic radiation therapy (principal); C09.9 Malignant neoplasm of tonsil, unspecified; Z51.11 Encounter for antineoplastic chemotherapy; C09.1 Malignant neoplasm of tonsillar pillar (anterior) (posterior); C77.0 Secondary and unspecified malignant neoplasm of lymph nodes of head, face and neck; C79.89 Secondary malignant neoplasm of other specified sites; R11.0 Nausea; Z79.899 Other long term (current) drug therapy; Z87.891 Personal history of nicotine dependence; Z53.9 Procedure and treatment not carried out, unspecified reason; Z79.52 Long term (current) use of systemic steroids; R11.2 Nausea with vomiting, unspecified
CPT/HCPCS: 77014; 77386

== ENCOUNTER 2022-01-07 09:00 | Oncology outpatient (recurring) (ONCR) | payer MEDICAID, SELFPAY ==
[2021-12-24 09:00] LABS: Basophils % 0.5 %; Eosinophils # 0.2 10^3/uL (0.0-0.8); Eosinophils % 3.3 %; Hematocrit 36.2 % (42.0-52.0); Hemoglobin 11.8 g/dL (11.7-16.6); Lymphocytes # 0.7 10^3/uL (0.8-4.8); Lymphocytes % 11.8 %; Mean Corpuscular HGB Conc 32.6 g/dL (30.0-36.0); Mean Corpuscular Hemoglobin 30.6 pg (28.0-34.0); Mean Platelet Volume 11.5 fL (7.4-10.4); Monocytes # 0.8 10^3/uL (0.2-0.9); Monocytes % 13.7 %; Neutrophils # 4.08 10^3/uL (1.8-7.7); Nucleated Red Blood Cells % 0 %; Platelet Count 174 10^3/cmm (130-400); Red Blood Count 3.85 10^6/uL (4.1-5.3); Red Cell Distribution Width 13.9 % (12.1-15.1); White Blood Count 5.8 10^3/uL (4.0-10.0)
[2021-12-24 09:30] LABS: Alanine Aminotransferase 11 U/L (0-41); Albumin Level 4.2 g/dL (3.5-5.2); Alkaline Phosphatase 91 U/L (40-130); Anion Gap 12.4 (5-19); Aspartate Amino Transferase 20 U/L (0-40); Blood Urea Nitrogen 18 mg/dL (8-23); Calcium 9.4 mg/dL (8.5-10.5); Carbon Dioxide 28 mmol/L (22-29); Chloride 98 mmol/L (98-107); Ferritin 391 ng/mL (30-400); Globulin 3.3 g/dL (1.3-4.6); Glomerular Filtration Rate 167.4 mL/min (90-130); Glucose 114 mg/dL (65-115); Iron 49 ug/dL (59-158); Osmolality Calculated 281 mOsm/kg (285-295); Percent Saturation 21.5 % (20-50); Potassium 4.4 mmol/L (3.5-5.1); Sodium 134 mmol/L (136-145); Total Bilirubin 0.2 mg/dL (0.15-1.2); Total Iron Binding Capacity 227 mcg/dl; Total Protein 7.5 g/dL (6.6-8.7); Unsaturated Iron Binding 178 ug/dL (112-347)
[2021-12-24] MEDS: OLANZapine 5 mg ODT PO (11:00)
[2021-12-24] MEDS: fosaprepitant 150 MG in sodium chloride 0.9% 150 ML 300 MG IV (11:03)
[2021-12-24] MEDS: diphenhydrAMINE 50 mg/mL SDV 1mL 25 MG IVP (11:25)
[2021-12-24] MEDS: famotidine 20 mg/2 mL INJ IVP (11:26)
[2021-12-24] MEDS: sodium chloride 0.9% 250 ML 75 ML IV (11:30)
[2021-12-24] MEDS: palonosetron 0.25 mg/5 mL SDV IVP (11:30)
[2021-12-24 11:45] VITALS: BMI 20.9
[2021-12-24] MEDS: FUROsemide 10 mg/mL SDV 2mL 20 MG IVP (11:49)
[2021-12-24] MEDS: CISPLATIN IV (11:51)
[2021-12-24] MEDS: SODIUM CHLORIDE 0.9% IV (11:51)
[2021-12-24 12:00] VITALS: BP 109/65; PULSE 65; RESP 18; TEMP 37.3; O2SAT 95
[2021-12-24] MEDS: potassium chloride 20 MEQ in sodium chloride 0.9% 500 ML 500 MEQ IV (12:52)
--- NOTE | 2021-12-24 14:00 | ONCRAD TMN_ITS ---
Radiation Oncology Treatment Management Note Patient Name: Ervin Vásquez Date of : 1955 Date of Service: 12/24/2021 Attending Physician: Yury Rea M.D. 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 The patient was evaluated by Bandar Jordan M.D. at [facility] ENT dysphagia and right otalgia in July. An examination described an ulcerated mass of the right tonsil. A fiberoptic laryngoscopy did not identify any abnormalities within base of tongue or larynx. 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 A CT scan of the neck ordered on July 25, 2021 demonstrated fullness of the right tonsillar pillar and bilateral, cervical lymphadenopathy. The largest lymph node measured 1.4 cm. PET scan on August 12, 2021 reported a large mass involving the right iram-tonsillar region with a maximum SUV of 17.4 and a 2 cm right cervical lymph node located posteriorly to the sternocleidomastoid muscle (SUV 19.9). He was referred to the [facility]s Department of otolaryngology for surgical evaluation. An oral examination identified firmness of the right lateral oral tongue. Trismus was also present. A right partial glossectomy, right neck dissection, mandibulotomy with plate placement, a right anterior lateral thigh free flap pharyngoplasty, PEG placement, and tracheostomy was performed by Zaki Chaparro M.D. on September 03, 2021. The pathology report diagnosed a 6 cm, moderately-differentiated, squamous cell carcinoma of the right tonsil, oral tongue, retromolar trigone, and floor of mouth. The depth of invasion measured 4.8 cm with focal iram-neural invasion present. Invasive tumor was present at the posterior surgical margin. A total of 44 lymph nodes were harvested with 1 lymph node harboring metastatic disease. The lymph node measured 4 cm and extranodal extension was present (level IIA). The patient has received 46 Gy of a prescribed 66 Mcallister with an intensity modulated radiotherapy plan utilizing a step and shoot treatment technique. He has been prescribed cisplatin (100 mg/m2) every three weeks during radiotherapy. After the first cycle of chemotherapy, the schedule was changed to weekly cisplatin attributable to adverse effects. Upon review of systems, he did not describe new any symptoms. On physical examination, the patient weighed 155 lbs. His temperature was 98.8 ???F and the blood pressure was 119/59 mmHg. His pulse was 71 bpm and the respiratory rate was 18. There was a grade I erythema within the treatment joya. A grade I mucositis was also present. Continue post-operative head and neck radiotherapy as prescribed. Signed by: Dr. Yury Rea 12/24/2021 1:58:49 PM
[2021-12-24 14:12] VITALS: BP 127/77; PULSE 67; RESP 17; TEMP 37; O2SAT 95
[2021-12-30 08:47] VITALS: BP 98/60; PULSE 63; RESP 16; TEMP 37.1; O2SAT 96
[2021-12-30 09:25] LABS: Basophils % 0.6 %; Eosinophils # 0.1 10^3/uL (0.0-0.8); Eosinophils % 4.1 %; Hemoglobin 11.4 g/dL (11.7-16.6); Lymphocytes # 0.6 10^3/uL (0.8-4.8); Lymphocytes % 19.4 %; Mean Corpuscular HGB Conc 32.6 g/dL (30.0-36.0); Mean Corpuscular Hemoglobin 30.6 pg (28.0-34.0); Mean Corpuscular Volume 94.1 fl (80-94); Mean Platelet Volume 11.9 fL (7.4-10.4); Monocytes # 0.4 10^3/uL (0.2-0.9); Monocytes % 12.7 %; Neutrophils # 1.98 10^3/uL (1.8-7.7); Neutrophils % 63.2 %; Nucleated Red Blood Cells % 0 %; Platelet Count 196 10^3/cmm (130-400); Red Blood Count 3.72 10^6/uL (4.1-5.3); Red Cell Distribution Width 14.2 % (12.1-15.1); White Blood Count 3.1 10^3/uL (4.0-10.0)
[2021-12-30 09:28] LABS: Alanine Aminotransferase 15 U/L (0-41); Alkaline Phosphatase 83 U/L (40-130); Aspartate Amino Transferase 21 U/L (0-40); Carbon Dioxide 28 mmol/L (22-29); Chloride 100 mmol/L (98-107); Globulin 3.3 g/dL (1.3-4.6); Glucose 109 mg/dL (65-115); Total Protein 7.3 g/dL (6.6-8.7)
[2021-12-30 09:38] LABS: Blood Urea Nitrogen 18 mg/dL (8-23); Calcium 9.3 mg/dL (8.5-10.5); Glomerular Filtration Rate 167.4 mL/min (90-130); Osmolality Calculated 280 mOsm/kg (285-295); Sodium 134 mmol/L (136-145); Total Bilirubin 0.2 mg/dL (0.15-1.2)
[2021-12-30 09:39] LABS: Anion Gap 12.6 (5-19); Potassium 4.6 mmol/L (3.5-5.1)
[2021-12-31] MEDS: OLANZapine 5 mg ODT PO (10:32)
[2021-12-31] MEDS: sodium chloride 0.9% 250 ML 75 ML IV (10:33)
[2021-12-31] MEDS: palonosetron 0.25 mg/5 mL SDV IVP (10:33)
[2021-12-31] MEDS: famotidine 20 mg/2 mL INJ IVP (10:34)
[2021-12-31] MEDS: diphenhydrAMINE 50 mg/mL SDV 1mL 25 MG IVP (10:36)
[2021-12-31] MEDS: fosaprepitant 150 MG in sodium chloride 0.9% 150 ML 300 MG IV (10:55)
[2021-12-31] MEDS: CISPLATIN IV (11:18)
[2021-12-31] MEDS: SODIUM CHLORIDE 0.9% IV (11:18)
[2021-12-31] MEDS: FUROsemide 10 mg/mL SDV 2mL 20 MG IVP (12:25)
[2021-12-31] MEDS: potassium chloride 20 MEQ in sodium chloride 0.9% 500 ML 500 MEQ IV (12:28)
[2021-12-31 13:23] VITALS: BP 122/77; PULSE 61; RESP 16; TEMP 36.6; O2SAT 99
[2022-01-07 09:36] LABS: Basophils % 0.6 %; Eosinophils # 0.1 10^3/uL (0.0-0.8); Eosinophils % 4.2 %; Hemoglobin 11.8 g/dL (11.7-16.6); Lymphocytes # 0.7 10^3/uL (0.8-4.8); Lymphocytes % 20.8 %; Mean Corpuscular HGB Conc 32.8 g/dL (30.0-36.0); Mean Corpuscular Volume 94.5 fl (80-94); Mean Platelet Volume 11.7 fL (7.4-10.4); Monocytes # 0.4 10^3/uL (0.2-0.9); Monocytes % 11.9 %; Neutrophils # 1.94 10^3/uL (1.8-7.7); Neutrophils % 62.2 %; Nucleated Red Blood Cells % 0 %; Platelet Count 141 10^3/cmm (130-400); Red Blood Count 3.81 10^6/uL (4.1-5.3); White Blood Count 3.1 10^3/uL (4.0-10.0)
[2022-01-07 09:55] LABS: Alanine Aminotransferase 12 U/L (0-41); Albumin Level 3.9 g/dL (3.5-5.2); Alkaline Phosphatase 80 U/L (40-130); Aspartate Amino Transferase 29 U/L (0-40); Blood Urea Nitrogen 18 mg/dL (8-23); Calcium 9.7 mg/dL (8.5-10.5); Carbon Dioxide 28 mmol/L (22-29); Chloride 99 mmol/L (98-107); Globulin 3.6 g/dL (1.3-4.6); Glomerular Filtration Rate 167.4 mL/min (90-130); Glucose 134 mg/dL (65-115); Osmolality Calculated 292 mOsm/kg (285-295); Sodium 139 mmol/L (136-145); Total Bilirubin 0.3 mg/dL (0.15-1.2); Total Protein 7.5 g/dL (6.6-8.7)
== END 2022-01-17 23:59 | disposition home or self-care (01) ==
PROVIDERS: Nurse Practitioner; Absent Provider Internal Medicine Hematology & Oncology; Visit Provider Radiology Radiation Oncology
DX: Z51.0 Encounter for antineoplastic radiation therapy (principal); C09.9 Malignant neoplasm of tonsil, unspecified; Z87.891 Personal history of nicotine dependence
CPT/HCPCS: 36591; 77014; 77336; 77386; 80053; 82728; 83540; 83550; 85025; 96366; 96367; 96375; 96413; J1100; J1200; J1453; J1940; J2469; J3475; J3480; J3490; J7030; J7040; J7050; J9060

== ENCOUNTER 2022-02-06 07:58 | Oncology outpatient (recurring) (ONCR) | payer MEDICAID, SELFPAY ==
[2022-02-06 08:17] LABS: Basophils % 0.8 %; Eosinophils # 0.1 10^3/uL (0.0-0.8); Eosinophils % 2.5 %; Hematocrit 33.3 % (42.0-52.0); Hemoglobin 11.2 g/dL (11.7-16.6); Lymphocytes # 0.9 10^3/uL (0.8-4.8); Lymphocytes % 18.4 %; Mean Corpuscular HGB Conc 33.6 g/dL (30.0-36.0); Mean Corpuscular Volume 98.2 fl (80-94); Mean Platelet Volume 11.1 fL (7.4-10.4); Monocytes # 0.9 10^3/uL (0.2-0.9); Monocytes % 18.6 %; Neutrophils # 2.86 10^3/uL (1.8-7.7); Neutrophils % 58.5 %; Nucleated Red Blood Cells % 0 %; Platelet Count 279 10^3/cmm (130-400); Red Blood Count 3.39 10^6/uL (4.1-5.3); Red Cell Distribution Width 18.6 % (12.1-15.1); White Blood Count 4.9 10^3/uL (4.0-10.0)
--- NOTE | 2022-02-06 09:04 | ONCRAD EPV_ITS ---
Radiation Oncology Follow-Up Note Patient Name: Ervin Vásquez Date of : 1955 Date of Service: 02/06/2022 Attending Physician: Yury Rea M.D. Ervin Vásquez returned for a routinely scheduled follow-up appointment. He completed post-operative head and neck radiotherapy in December for the management of a pathological stage IVB (T4aN3b) tonsillar cancer. The patient was evaluated by Bandar Jordan M.D. at [facility] ENT dysphagia and right otalgia in July. An examination described an ulcerated mass of the right tonsil. A fiberoptic laryngoscopy did not identify any abnormalities within base of tongue or larynx. 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 A CT scan of the neck ordered on July 25, 2021 demonstrated fullness of the right tonsillar pillar and bilateral, cervical lymphadenopathy. The largest lymph node measured 1.4 cm. PET scan on August 12, 2021 reported a large mass involving the right iram-tonsillar region with a maximum SUV of 17.4 and a 2 cm right cervical lymph node located posteriorly to the sternocleidomastoid muscle (SUV 19.9). He was referred to the [facility] Department of otolaryngology for surgical evaluation. An oral examination identified firmness of the right lateral oral tongue. Trismus was also present. A right partial glossectomy, right neck dissection, mandibulotomy with plate placement, a right anterior lateral thigh free flap pharyngoplasty, PEG placement, and tracheostomy was performed by Zaki Chaparro M.D. on September 03, 2021. The pathology report diagnosed a 6 cm, moderately-differentiated, squamous cell carcinoma of the right tonsil, oral tongue, retromolar trigone, and floor of mouth. The depth of invasion measured 4.8 cm with focal iram-neural invasion present. Invasive tumor was present at the posterior surgical margin. A total of 44 lymph nodes were harvested with 1 lymph node harboring metastatic disease. The lymph node measured 4 cm and extranodal extension was present (level IIA). Head and neck radiation therapy was delivered between the dates of November 18, 2021 through January 07, 2022. A prescribed dose of 66 Gy was delivered in 33 fractions encompassing 51 elapsed days. He was prescribed cisplatin (100 mg/m2) on November 18, 2021. The schedule was changed to weekly cisplatin (40 mg/m2) attributable to adverse effects (December 09, 2021 through December 31, 2021). On review of systems, he described On physical examination, He weighed 165 lbs and his temperature was 97.8???F. His blood pressure was 131/84 mmHg. The pulse was 61 bpm and his respiratory rate was 16 breaths per minute. Examination of the oral cavity failed to identify palpable or visible abnormalities. I did not identify any cervical lymphadenopathy. Right-sided submandibular lymphedema was present. In summary, Mr. Vásquez returned for a post-radiotherapy appointment. He has no significant sequelae from treatment. He will continue follow-up as scheduled with his promotions associate. Signed by: Dr. Yury Rea 02/06/2022 9:02:01 AM
== END 2022-02-17 23:59 | disposition home or self-care (01) ==
PROVIDERS: Absent Provider Internal Medicine Hematology & Oncology; Visit Provider Radiology Radiation Oncology
DX: C09.9 Malignant neoplasm of tonsil, unspecified (principal)
CPT/HCPCS: 36591; 85025

== ENCOUNTER 2022-07-18 10:43 | Outpatient (CLI) | payer MEDICAID, SELFPAY ==
--- NOTE | 2022-07-18 10:53 | MR_ITS ---
WS: [id number] MRI NECK with and without CONTRAST. COMPARISON: None Multiplanar, multisequence imaging is performed with and without contrast. MultiHance 17 mL IV. History: Recurrent throat and tonsil cancer. Prior excision. No prior studies for comparison. Prior h istory of RIGHT radical neck dissection, partial glossectomy and mandibulectomy. Patient is complaini ng of left ear pain. There is a large enhancing mass with central necrosis centered in the LEFT tonsillar bed. Mass extend s into the LEFT tongue base and also into the artificial candy maker space. There is extension along the torus tu barius and eustachian canal. Mass extends to the midline anteriorly and crosses the midline through t he tongue base. Mass measures at least 4.2 x 3.4 cm. There is abnormal signal in the floor the mouth which may be tumor extension or postradiation changes. 9 mm peripherally enhancing level 2 LEFT cervical chain lymph node. Necrotic center. There are a few additional smaller lymph nodes. Abnormal signal within the C2 and C3 vertebral body is probably all post radiation marrow change. MR/MR orbit face neck wo/w* [id number] IMPRESSION: 1. Patient is status post extensive RIGHT radical neck dissection. No prior CT . Prior PET/CT from 08/12/2021 was positive for RIGHT neck neoplasm. 2. New large infiltrating soft tissue mass with central necrosis centered in t he LEFT tonsillar bed with extension into the tongue base and masseter space. A bnormal enhancement extends across the midline anteriorly and posteriorly. High ly suspicious for recurrent head and neck neoplasm. Recommend direct visualizat ion and biopsy. 3. Small necrotic appearing level 2 LEFT lymph node. 4. Recommend follow-up PET/CT imaging. 5. Additional abnormal signal in the floor the mouth and in the C2 and C3 vert ebral bodies. Some of these changes may be post radiation therapy related. This can be further evaluated by PET/CT imaging.
[2022-07-18] MEDS: gadobenate dimeglumine 20 mL vial IV (12:00)
== END 2022-07-18 10:44 | disposition home or self-care (01) ==
LOC: RAD 10:45
PROVIDERS: Visit Provider Otolaryngology
DX: C09.8 Malignant neoplasm of overlapping sites of tonsil (principal)
CPT/HCPCS: 70543; A9577

== ENCOUNTER 2022-07-26 05:43 | Outpatient (CLI) | payer MEDICAID, SELFPAY ==
--- NOTE | 2022-07-26 | PETR_ITS ---
PROCEDURE INFORMATION: Exam: PET/CT Vertex to Mid-thigh Exam date and time: 07/26/2022 12:28 PM Age: 66 years old Clinical indication: Condition or disease; Primary cancer: Tonsil; Additional info: C09.8 malignant neoplasm of overlapping sites of tonsil LABS AND CLINICAL REPORTS: Glucose: 132 mg/dl Treatment strategy for malignancy (PET staging): Restaging (PS) TECHNIQUE: Imaging protocol: Following at least four-hour fasting and following the injection of radiopharmaceutical, low dose CT images were obtained. Then, PET images were obtained. Attenuation corrected images were constructed using the CT scan. Fused images of PET and CT were reviewed. The standardized uptake values (SUV) reported below are maximum values within a region of interest, expressed in gm/ml. Exam includes vertex to mid-thigh. Radiopharmaceutical: 13.38 mCi F-18 FDG (Fluorodeoxyglucose), IV. Time of imaging post radiopharmaceutical administration: 47.6 minutes. Injection site: Left antecubital vein. COMPARISON: PET/CT 08/12/2021. [facility]. FINDINGS: Limitations: PET images 119- 212 of the lower half of the body are missing. They have been requested. Tubes, catheters and devices: A left chest port is in good position with its tip near the SVC/RA junction. Brain: Visualized brain has normal physiologic uptake. Paranasal sinuses: Stable chronic right maxillary sinusitis. There is sclerosis and thickening of the sinus child Oral cavity: Marked postradiation fatty atrophy of the right side of the tongue. Pharynx: Large recurrent bilateral tonsillar cancer, left side more than right, is 5.9 x 4.6 x 5.2 cm (TR x AP x CC) (image 42). Its SUV max is 15.7. Larynx: Symmetric uptake in the larynx is considered physiologic because there is no corresponding CT abnormality. Lungs, pleura and trachea: There are approximately 20 bilateral pulmonary metastases. Many of the larger metastases are cavitated. In the right lung, the largest metastasis is 4.1 cm, and its SUV max is 15.4 (image 93). In the left lung, the largest metastasis is 3.9 cm, and its SUV max is 14.1 (image 92). No pleural effusion. Heart: Heart size is normal. A cardiac or pericardial metastasis to the left of the main pulmonary artery is 3.2 x 2.2 cm and has an SUV max of 10.8 (image 92). No pericardial effusion. Mediastinal space: No abnormal uptake. Liver: No abnormal uptake. Gallbladder and bile ducts: No abnormal uptake. Pancreas: No abnormal uptake. Spleen: No abnormal uptake. Adrenal glands: No abnormal uptake. Kidneys and ureters: Bilateral nephrolithiasis and vascular calcifications. No hydronephrosis or renal mass. Stomach and bowel: No abnormal uptake. Vasculature: There is severe calcific atherosclerosis of the abdominal aorta and iliac arteries. There is no aneurysm. Lymph nodes: Bilateral FDG avid cervical lymphadenopathy. Two right level II lymph nodes have an SUV max of 4.8 and a short axis of 8 mm (image 43). A left level II lymph node has an SUV max of 4.1 a short axis of 8 mm (image 43). A left VIIa retropharyngeal lymph node has a short axis of 5 mm and an SUV max of 4.6 (image 49). A left III mid jugular lymph node has a short axis of 8 mm and an SUV max of 4.8 (image 52). Left lower paratracheal lymphadenopathy has a short axis of 10 mm and an SUV max of 5.0 (image 82). Bones/joints: No osseous metastatic disease. The signal abnormalities in the upper cervical vertebra on the MRI are due to radiation. Soft tissues: Status post right radical neck dissection. Small bilateral fat containing inguinal hernias. PET/PET [facility] SUBSEQ [id number] IMPRESSION: 1. Status post right radical neck dissection. 2. Large recurrent bilateral tonsillar cancer, left side more than right, is 5.9 x 4.6 x 5.2 cm (TR x AP x CC). Its SUV max is 15.7. 3. Bilateral FDG avid cervical lymphadenopathy. 4. Approximally 20 bilateral pulmonary metastases. The largest metastasis is 4.1 cm, and its SUV max is 15.4. 5. A cardiac or pericardial metastasis to the left of the main pulmonary artery is 3.2 x 2.2 cm and has an SUV max of 10.8. 6. Limited study. PET images of the abdomen and pelvis are missing. They have been requested. If and when they are obtained, an addendum report will follow.
== END 2022-07-26 05:44 | disposition home or self-care (01) ==
LOC: RAD 07-28 09:48
PROVIDERS: PCP Family Medicine; Visit Provider Specialist
DX: C09.8 Malignant neoplasm of overlapping sites of tonsil (principal)
CPT/HCPCS: 78815; A9552